=== PATIENT | male | born 1975 | race Caucasian/White ===

== ENCOUNTER 2016-10-27 08:28 | Observation (INO) | payer BC ==
[2016-10-27] MEDS ORDERED: SODIUM CHLORIDE 0.9% 1,000 ML IV STA (08:37)
[2016-10-27] MEDS ORDERED: ACETAMINOPHEN IV (For NPO) 1,000 MG in SALINE 100 100ML.BAG IVPB STA (08:38)
--- NOTE | 2016-10-27 08:40 | ED ---
Abdominal Pain HPI - General Source: patient, RN notes reviewed Mode of arrival: ambulatory Limitations: no limitations <Alejandro Castillo - Last Filed: 10/27/16 11:11> <Rikki Benavides - Last Filed: 10/27/16 11:14> - General Chief Complaint: Abdominal Pain Stated Complaint: ABDOMINAL PAIN Time Seen by Provider: 10/27/16 08:35 - History of Present Illness Initial Comments: Patient is a 40-year-old male who presents emergency room today with a chief complaint of increased right-sided abdominal pain that started approximate 1 AM. Describes it as cramping and sharp at times. Currently rates it a 5/10. Does admit that he had a bout of diarrhea this morning. States try to go to work but pain seemed to be increasing. Patient states never had similar symptoms in the past. Denies any history of any abdominal surgeries. Denies any other past medical history. Patient denies any recent fever, chills, shortness of breath, chest pain, back pain, nausea or vomiting, numbness or tingling, dysuria or hematuria, constipation, headaches or visual changes, or any other complaints. (Alejandro Castillo) - Related Data Allergies Allergy/AdvReac Type Severity Reaction Status Date / Time Penicillins Allergy Unknown Verified 10/27/16 08:32 Childhood Review of Systems ROS Other: All systems not noted in ROS Statement are negative. <Alejandro Castillo - Last Filed: 10/27/16 11:11> ROS Other: All systems not noted in ROS Statement are negative. <Rikki Benavides - Last Filed: 10/27/16 11:14> ROS Statement: Those systems with pertinent positive or pertinent negative responses have been documented in the HPI. Past Medical History Past Medical History: No Reported History History of Any Multi-Drug Resistant Organisms: None Reported Past Surgical History: Ear Surgery, Orthopedic Surgery Additional Past Surgical History / Comment(s): right knee scope Past Psychological History: Anxiety Smoking Status: Never smoker Past Alcohol Use History: Occasional Past Drug Use History: None Reported <Alejandro Castillo - Last Filed: 10/27/16 11:11> General Exam Limitations: no limitations <Alejandro Castillo - Last Filed: 10/27/16 11:11> <Rikki Benavides - Last Filed: 10/27/16 11:14> - General Exam Comments Initial Comments: General: The patient is awake and alert, in no distress, and does not appear acutely ill. Eye: Pupils are equal, round and reactive to light, extra-ocular movements are intact. No nystagmus. There is normal conjunctiva bilaterally. No signs of icterus. Ears, nose, mouth and throat: There are moist mucous membranes and no oral lesions. Neck: The neck is supple, there is no tenderness or JVD. Cardiovascular: There is a regular rate and rhythm. No murmur, rub or gallop is appreciated. Respiratory: Lungs are clear to auscultation, respirations are non-labored, breath sounds are equal. No wheezes, stridor, rales, or rhonchi. Gastrointestinal: Normal appearance abdomen. Normal bowel sounds. Involuntary guarding. Tenderness in right lower quadrant. No rebound tenderness. No CVA tenderness. Musculoskeletal: Normal ROM, no tenderness. Strength 5/5. Sensation intact. Pulses equal bilaterally 2+. Neurological: A&O x 3. CN II-XII intact, There are no obvious motor or sensory deficits. Coordination appears grossly intact. Speech is normal. Skin: Skin is warm and dry and no rashes or lesions are noted. Psychiatric: Cooperative, appropriate mood & affect, normal judgment. (Alejandro Castillo) Course <Alejandro Castillo - Last Filed: 10/27/16 11:11> <Rikki Benavides - Last Filed: 10/27/16 11:14> Vital Signs 10/27/16 10/27/16 10/27/16 08:30 09:32 10:35 Temperature 97.9 F Pulse Rate 76 87 83 Respiratory 16 20 20 Rate Blood Pressure 126/81 137/98 122/89 O2 Sat by Pulse 100 98 97 Oximetry - Reevaluation(s) Reevaluation #1: 10/27/16 11:12 I did personally do a [id number] evaluation the patient and did discuss the findings with the patient and his family members. Patient does demonstrate tenderness over McBurney's point. His CAT scan does show evidence of early appendicitis. Also a trace of pelvic free fluid likely reactive to inflammation I did discuss the case with Dr. Mueller. The patient will be admitted and taken to the operating room for laparoscopic appendectomy/ evaluation patient does have a penicillin ALLERGY and will be started on Levaquin. (Rikki Benavides) Medical Decision Making - Lab Data Result diagrams: 10/27/16 08:46 10/27/16 08:46 <Alejandro Castillo - Last Filed: 10/27/16 11:11> - Lab Data Result diagrams: 10/27/16 08:46 10/27/16 08:46 <Rikki Benavides - Last Filed: 10/27/16 11:14> - Medical Decision Making Patient reexamined at this time shows no signs of distress resting comfortably in the stretcher. Patient still expressing pain right lower quadrant. Does have 15,[address] the abdomen and pelvis revealing evidence for acute appendicitis. Case discussed attending physician Dr. Benavides who did discuss case with surgeon highway commissioner Dr. Mueller who will admit the patient and recommend starting antibiotics of Levaquin due to penicillin ALLERGY. (Alejandro Castillo) - Lab Data Lab Results 10/27/16 10/27/16 10/27/16 Range/Units 08:46 08:46 08:46 WBC 15.6 H (3.8-10.6) k/uL RBC 4.91 (4.30-5.90) m/uL Hgb 16.5 (13.0-17.5) gm/dL Hct 44.6 (39.0-53.0) % MCV 90.9 (80.0-100.0) fL MCH 33.6 (25.0-35.0) pg MCHC 37.0 (31.0-37.0) g/dL RDW 12.5 (11.5-15.5) % Plt Count 306 (150-450) k/uL Neutrophils % 88 % Lymphocytes % 6 % Monocytes % 3 % Eosinophils % 1 % Basophils % 0 % Neutrophils # 13.8 H (1.3-7.7) k/uL Lymphocytes # 1.0 (1.0-4.8) k/uL Monocytes # 0.5 (0-1.0) k/uL Eosinophils # 0.1 (0-0.7) k/uL Basophils # 0.1 (0-0.2) k/uL Sodium 138 (137-145) mmol/L Potassium 4.0 (3.5-5.1) mmol/L Chloride 100 (98-107) mmol/L Carbon Dioxide 26 (22-30) mmol/L Anion Gap 12 mmol/L BUN 15 (9-20) mg/dL Creatinine 0.94 (0.66-1.25) mg/dL Est GFR (MDRD) Af Amer >60 (>60 ml/min/1.73 sqM) Est GFR (MDRD) Non-Af >60 (>60 ml/min/1.73 sqM) Glucose 115 H (74-99) mg/dL Plasma Lactic Acid Colten 0.9 (0.7-2.0) mmol/L Calcium 9.8 (8.4-10.2) mg/dL Total Bilirubin 1.1 (0.2-1.3) mg/dL AST 29 (17-59) U/L ALT 36 (21-72) U/L Alkaline Phosphatase 78 (38-126) U/L Total Protein 8.5 H (6.3-8.2) g/dL Albumin 5.2 H (3.5-5.0) g/dL Amylase 61 (30-110) U/L Lipase 139 (23-300) U/L Urine Color Urine Appearance (Clear) Urine pH (5.0-8.0) Ur Specific [place] (1.001-1.035) Urine Protein (Negative) Urine Glucose (UA) (Negative) Urine Ketones (Negative) Urine Blood (Negative) Urine Nitrite (Negative) Urine Bilirubin (Negative) Urine Urobilinogen (<2.0) mg/dL Ur Leukocyte Esterase (Negative) 10/27/16 Range/Units 08:46 WBC (3.8-10.6) k/uL RBC (4.30-5.90) m/uL Hgb (13.0-17.5) gm/dL Hct (39.0-53.0) % MCV (80.0-100.0) fL MCH (25.0-35.0) pg MCHC (31.0-37.0) g/dL RDW (11.5-15.5) % Plt Count (150-450) k/uL Neutrophils % % Lymphocytes % % Monocytes % % Eosinophils % % Basophils % % Neutrophils # (1.3-7.7) k/uL Lymphocytes # (1.0-4.8) k/uL Monocytes # (0-1.0) k/uL Eosinophils # (0-0.7) k/uL Basophils # (0-0.2) k/uL Sodium (137-145) mmol/L Potassium (3.5-5.1) mmol/L Chloride (98-107) mmol/L Carbon Dioxide (22-30) mmol/L Anion Gap mmol/L BUN (9-20) mg/dL Creatinine (0.66-1.25) mg/dL Est GFR (MDRD) Af Amer (>60 ml/min/1.73 sqM) Est GFR (MDRD) Non-Af (>60 ml/min/1.73 sqM) Glucose (74-99) mg/dL Plasma Lactic Acid [place] (0.7-2.0) mmol/L Calcium (8.4-10.2) mg/dL Total Bilirubin (0.2-1.3) mg/dL AST (17-59) U/L ALT (21-72) U/L Alkaline Phosphatase (38-126) U/L Total Protein (6.3-8.2) g/dL Albumin (3.5-5.0) g/dL Amylase (30-110) U/L Lipase (23-300) U/L Urine Color Yellow Urine Appearance Clear (Clear) Urine pH 5.5 (5.0-8.0) Ur Specific [place] 1.024 (1.001-1.035) Urine Protein Trace H (Negative) Urine Glucose (UA) Negative (Negative) Urine Ketones Negative (Negative) Urine Blood Negative (Negative) Urine Nitrite Negative (Negative) Urine Bilirubin Negative (Negative) Urine Urobilinogen <2.0 (<2.0) mg/dL Ur Leukocyte Esterase Negative (Negative) Disposition Time of Disposition: 11:04 <Alejandro Castillo - Last Filed: 10/27/16 11:11> <Rikki Benavides - Last Filed: 10/27/16 11:14> Clinical Impression: Acute appendicitis, Abdominal pain Disposition: ADMITTED IP TO THIS HOSP Condition: Stable Referrals: Sheryl Oconnell MD [Primary Care Provider] - 1-2 days
[2016-10-27 09:03] LABS: Basophils # (A) 0.1 k/uL (0-0.2); Basophils % (A) 0 %; CH 32.8; CHCM 36.2; Eosinophils # (A) 0.1 k/uL (0-0.7); Eosinophils % (A) 1 %; HCT 44.6 % (39.0-53.0); HDW 2.57; HGB 16.5 gm/dL (13.0-17.5); Luc # (Auto) 0.14; Luc % (Auto) 1; Lymphocytes % (A) 6 %; MCH 33.6 pg (25.0-35.0); MCV 90.9 fL (80.0-100.0); Monocytes # (A) 0.5 k/uL (0-1.0); Monocytes % (A) 3 %; Neutrophils # (A) 13.8 k/uL (1.3-7.7); Neutrophils % (A) 88 %; RBC 4.91 m/uL (4.30-5.90); RDW 12.5 % (11.5-15.5); WBC 15.6 k/uL (3.8-10.6); WBC (Perox) 14.67
[2016-10-27 09:04] LABS: Appearance,Urine Clear (Clear); Bilirubin,Urine Negative (Negative); Glucose,Urine (UA) Negative (Negative); Ketones,Urine Negative (Negative); Leukocyte Esterase,Urine Negative (Negative); Nitrite,Urine Negative (Negative); PH, Urine 5.5 (5.0-8.0); Protein,Urine Trace (Negative); Specific Gravity,Urine 1.024 (1.001-1.035); UA Billing (MACRO vs. MICRO) CHEM; Urobilinogen,Urine <2.0 mg/dL (<2.0)
[2016-10-27 09:14] LABS: ALT 36 U/L (21-72); AST 29 U/L (17-59); Alkaline Phosphatase 78 U/L (38-126); Amylase 61 U/L (30-110); Anion Gap 12 mmol/L; Blood Urea Nitrogen 15 mg/dL (9-20); Calcium 9.8 mg/dL (8.4-10.2); Carbon Dioxide 26 mmol/L (22-30); Chloride 100 mmol/L (98-107); Glucose 115 mg/dL (74-99); Non-African American GFR(MDRD) >60 (>60 ml/min/1.73 sqM); Sodium 138 mmol/L (137-145); Total Bilirubin 1.1 mg/dL (0.2-1.3); Total Protein 8.5 g/dL (6.3-8.2)
[2016-10-27] MEDS ORDERED: RX INFO: IV CONTRAST WAS GIVEN 1 EACH MISC MISCELLANE PRN (09:15)
--- NOTE | 2016-10-27 10:40 | CT ---
EXAMINATION TYPE: CT abdomen pelvis w con DATE OF EXAM: 10/27/2016 COMPARISON: NONE HISTORY: 40-year-old male with abdominal pain, right lower quadrant TECHNIQUE: Contiguous axial scanning of the abdomen and pelvis following administration of 100 ml Omn ipaque 300 IV contrast. Delayed images through the kidneys and coronal/sagittal reconstructions perf ormed. CT DLP: 660.60 mGycm Automated exposure control for dose reduction was used. FINDINGS: The heart is normal size without pericardial effusion. Tiny hiatal hernia. Lung bases clear without p leural effusion. No focal liver lesion or biliary ductal dilatation. Portal venous system is patent. Gallbladder, adrenal glands, kidneys, spleen, and pancreas within normal limits. No dilated small bowel, free fluid, or free air. No significant stool burden or a colonic inflammatory change. The appendix is visualized and is fluid-filled and mildly thickened 9 mm with minimal periappendiceal fat stranding. Mild circumferential bladder wall thickening. There is trace pelvic free fluid noted. No pelvic lymph adenopathy. Bones: Mild degenerative changes of the hips. Degenerative changes lower lumbar spine, suspected part ial interbody ankylosis toward the left at L4-L5 and a secondary mild dextroconvex scoliosis. Grade 1 retrolistheses at L2-L3 and L3-L4. No osseous destructive process. IMPRESSION: 1. FINDINGS ARE SUSPICIOUS FOR MILD ACUTE APPENDICITIS. NO ABSCESS OR FREE AIR. 2. TRACE PELVIC FREE FLUID LIKELY REACTIVE TO THE INFLAMMATION. 3. DEGENERATIVE CHANGES LOWER LUMBAR SPINE ABOVE.
[2016-10-27] MEDS ORDERED: ONDANSETRON 4 MG/2 ML VIAL IVP STA (10:49)
[2016-10-27] MEDS ORDERED: HYDROmorphone 1 MG/ML 1 ML SYRINGE IVP STA (10:49)
[2016-10-27] MEDS ORDERED: NALOXONE 0.4 MG/ML 1 ML VIAL IV PRN (11:06)
[2016-10-27] MEDS ORDERED: ONDANSETRON 4 MG/2 ML VIAL IVP PRN (11:06)
[2016-10-27] MEDS ORDERED: LEVOFLOXACIN 750MG-D5W PMX 750 MG in DEXTROSE/WATER 1 150ML.BAG IVPB STA (11:10)
[2016-10-27] MEDS ORDERED: LORazepam 2 MG/ML SYRINGE IV STA ×2 (11:16→11:17)
[2016-10-27] MEDS ORDERED: HEPARIN SODIUM,PORCINE 5,000 UNIT/ML 1 ML VIAL SQ ONE (12:06)
[2016-10-27] MEDS ORDERED: SUCCINYLCHOLINE CHLORIDE 100 MG/5 ML SYR IV ONE (12:18)
[2016-10-27] MEDS ORDERED: PROPOFOL 10 MG/ML 20 ML VIAL IV ONE (12:18)
[2016-10-27] MEDS ORDERED: GLYCOPYRROLATE 0.2 MG/ML 2 ML VIAL ONE (12:18)
[2016-10-27] MEDS ORDERED: VECURONIUM 10 MG VIAL IV ONE (12:18)
[2016-10-27] MEDS ORDERED: LIDOCAINE 1% INJ 10MG/ML (20 ML MDV) ONE (12:18)
[2016-10-27] MEDS ORDERED: MIDAZOLAM 2 MG/2 ML VIAL ONE (12:18)
[2016-10-27] MEDS ORDERED: fentaNYL (PF) 50 MCG/ML 2 ML AMP ONE (12:18)
[2016-10-27] MEDS ORDERED: NEOSTIGMINE 1 MG/ML 10 ML VIAL ONE (12:18)
--- NOTE | 2016-10-27 12:21 | P.GSHP ---
History of Present Illness H&P Date: 10/27/16 Chief Complaint: Acute appendicitis Patient began having abdominal pain at 5 AM. Pain was initially centralized but became more in the right lower quadrant. It was crampy in nature. He had 1 episode of diarrhea. This was nonbloody. No fevers. No history of similar events in the past. Appetite is diminished. White blood cell count is elevated. CAT scan shows thickening of the appendix and also some thickening of the right colon. Early appendicitis was the presumptive diagnosis by radiology. - Review of Systems Comment: The patient denies any acute changes in vision or hearing, no dysphagia or odynophagia, no chest pain or shortness of breath, no dysuria or hematuria, no headache, no runny nose, no rectal bleeding or melena, no unexplained weight loss Past Medical History Past Medical History: No Reported History History of Any Multi-Drug Resistant Organisms: None Reported Past Surgical History: Ear Surgery, Orthopedic Surgery Additional Past Surgical History / Comment(s): right knee scope Past Psychological History: Anxiety Smoking Status: Never smoker Past Alcohol Use History: Occasional Past Drug Use History: None Reported Medications and Allergies Home Medications Medication Instructions Recorded Confirmed Type ALPRAZolam [Xanax] 0.5 mg PO BID PRN 10/27/16 10/27/16 History Ibuprofen [Motrin] 200 - 400 mg PO Q6HR PRN 10/27/16 10/27/16 History diphenhydrAMINE HCL [Benadryl] 25 mg PO DAILY PRN 10/27/16 10/27/16 History Allergies Allergy/AdvReac Type Severity Reaction Status Date / Time Penicillins Allergy Unknown Verified 10/27/16 11:25 Childhood Surgical - Exam Vital Signs Temp Pulse Resp BP Pulse Ox 97.9 F 76 16 126/81 100 10/27/16 08:30 10/27/16 08:30 10/27/16 08:30 10/27/16 08:30 10/27/16 08:30 Physical exam: General: Well-developed, well-nourished HEENT: Normocephalic, sclerae nonicteric Abdomen: Right lower quadrant tenderness, nondistended Extremities: No edema Neuro: Alert and oriented Results - Labs 10/27/16 08:46 10/27/16 08:46 Abnormal Lab Results - Last 24 Hours (Table) 10/27/16 10/27/1610/27/17 Range/Units 08:46 08:46 08:46 WBC 15.6 H (3.8-10.6) k/uL Neutrophils # 13.8 H (1.3-7.7) k/uL Glucose 115 H (74-99) mg/dL Total Protein 8.5 H (6.3-8.2) g/dL Albumin 5.2 H (3.5-5.0) g/dL Urine Protein Trace H (Negative) Diabetes panel 10/27/16 Range/Units 08:46 Sodium 138 (137-145) mmol/L Potassium 4.0 (3.5-5.1) mmol/L Chloride 100 (98-107) mmol/L Carbon Dioxide 26 (22-30) mmol/L BUN 15 (9-20) mg/dL Creatinine 0.94 (0.66-1.25) mg/dL Glucose 115 H (74-99) mg/dL Calcium 9.8 (8.4-10.2) mg/dL AST 29 (17-59) U/L ALT 36 (21-72) U/L Alkaline Phosphatase 78 (38-126) U/L Total Protein 8.5 H (6.3-8.2) g/dL Albumin 5.2 H (3.5-5.0) g/dL Calcium panel 10/27/16 Range/Units 08:46 Calcium 9.8 (8.4-10.2) mg/dL Albumin 5.2 H (3.5-5.0) g/dL Pituitary panel 10/27/16 Range/Units 08:46 Sodium 138 (137-145) mmol/L Potassium 4.0 (3.5-5.1) mmol/L Chloride 100 (98-107) mmol/L Carbon Dioxide 26 (22-30) mmol/L BUN 15 (9-20) mg/dL Creatinine 0.94 (0.66-1.25) mg/dL Glucose 115 H (74-99) mg/dL Calcium 9.8 (8.4-10.2) mg/dL Adrenal panel 10/27/16 Range/Units 08:46 Sodium 138 (137-145) mmol/L Potassium 4.0 (3.5-5.1) mmol/L Chloride 100 (98-107) mmol/L Carbon Dioxide 26 (22-30) mmol/L BUN 15 (9-20) mg/dL Creatinine 0.94 (0.66-1.25) mg/dL Glucose 115 H (74-99) mg/dL Calcium 9.8 (8.4-10.2) mg/dL Total Bilirubin 1.1 (0.2-1.3) mg/dL AST 29 (17-59) U/L ALT 36 (21-72) U/L Alkaline Phosphatase 78 (38-126) U/L Total Protein 8.5 H (6.3-8.2) g/dL Albumin 5.2 H (3.5-5.0) g/dL Assessment and Plan (1) Acute appendicitis Narrative/Plan: Clinical scenario discussed with the patient and his family. There is the possibility that the right-sided inflammatory changes may be contributing to the patient's symptoms and there may be something more than just appendicitis as the etiology. Plan to proceed with diagnostic laparoscopy and laparoscopic appendectomy if indicated was discussed. The risks of bleeding, infection, abscess, conversion to an open procedure, possible need for bowel resection, persistent postoperative pain were discussed. He understands and wishes to proceed. Status: Acute
[2016-10-27] MEDS ORDERED: BUPIVACAINE (PF) 0.25% 30 ML VIAL SQ ONE ×2 (12:43)
[2016-10-27] MEDS ORDERED: SODIUM CHLORIDE 0.9% 1,000 ML IV ONE (12:44)
--- NOTE | 2016-10-27 13:16 | P.PCN ---
Date of Procedure: 10/27/16 Preoperative Diagnosis: Postoperative Diagnosis: Procedure(s) Performed: PREOPERATIVE DIAGNOSIS: Acute appendicitis POSTOPERATIVE DIAGNOSIS: Same PROCEDURE: Laparoscopic appendectomy SURGEON: Ervin EBL: Total ANESTHESIA: General COMPLICATIONS: None OPERATIVE PROCEDURE: The patient was brought and placed on the operating table in the supine position. The patient was placed under general anesthesia. The abdomen was prepped and draped in the usual sterile fashion. A small vertical infraumbilical incision was made. The fascia was retracted anteriorly with Douglas forceps. The Veress needle was advanced into the perineal cavity. The saline drop test was normal. Insufflation took place to 15 mmHg. A 5 mm trocar was then placed. An additional 5 mm suprapubic trocar was placed under direct visualization as well as a 12 mm left lower quadrant trocar under direct visualization. The appendix was inspected. It was acutely inflamed. The mesoappendix was dissected. The base of the appendix was divided using a linear 45 mm intestinal stapler. The mesentery itself was divided using a fowler load stapler. There was small amount of bleeding along the staple line that was controlled using the 12 mm clipper. The area was then irrigated. No further purulence or bleeding was seen. The appendix was brought out of the peritoneal cavity through the left lower quadrant trocar site within the trocar itself. The fascia at the 12 mm site was closed using a [id number] 0 Vicryl stitch. The skin at all 3 sites was closed using 4-0 Monocryl sutures. Steri-Strips and sterile dressings then applied. DISPOSITION: Stable to recovery room Implants: Indications for Procedure: Operative Findings: Description of Procedure:
[2016-10-27] MEDS ORDERED: KETOROLAC 30 MG/ML 1 ML VIAL IVP ONE (13:24)
[2016-10-27] MEDS: HYDROmorphone 1 MG/ML 1 ML SYRINGE IVP ONE ×2 (13:24→13:30)
[2016-10-27 14:05] VITALS: BMI 28.7
[2016-10-27] MEDS: HYDROmorphone 1 MG/ML 1 ML SYRINGE IV PRN ×3 (14:13→20:50)
[2016-10-27] MEDS: HEPARIN SODIUM,PORCINE 5,000 UNIT/ML 1 ML VIAL SQ SCH ×2 (16:49→22:33)
[2016-10-27] MEDS: HYDROcodone/APAP 5-325MG 1 EACH TAB PO PRN (22:32)
[2016-10-28] MEDS: HYDROmorphone 1 MG/ML 1 ML SYRINGE IV PRN (03:05)
[2016-10-28 03:31] VITALS: RESP 16
[2016-10-28] MEDS: HYDROcodone/APAP 5-325MG 1 EACH TAB PO PRN (07:25)
[2016-10-28 08:40] VITALS: BP 136/83; PULSE 67; TEMP 98.7
[2016-10-28] MEDS: HEPARIN SODIUM,PORCINE 5,000 UNIT/ML 1 ML VIAL SQ SCH (09:30)
--- NOTE | 2016-10-28 11:28 | P.DS ---
Providers Date of admission: 10/27/16 11:14 Expected date of discharge: 10/28/16 Attending physician: Alejandro Mueller Primary care physician: Sheryl Oconnell - Discharge Diagnosis(es) (1) Acute appendicitis Patient underwent laparoscopic appendectomy yesterday morning. Postoperatively the patient had mild discomfort and was kept overnight. Today he is doing quite well. He is ambulating. Pain is well-controlled. He is afebrile. He would like to go home today. Status: Acute Patient Condition at Discharge: Stable Plan - Discharge Summary New Discharge Prescriptions: No Action diphenhydrAMINE HCL [Benadryl] 25 mg PO DAILY PRN PRN Reason: Allergy Symptoms Ibuprofen [Motrin] 200 - 400 mg PO Q6HR PRN PRN Reason: Pain ALPRAZolam [Xanax] 0.5 mg PO BID PRN PRN Reason: Anxiety Discharge Medication List ALPRAZolam [Xanax] 0.5 mg PO BID PRN 10/27/16 [History] Ibuprofen [Motrin] 200 - 400 mg PO Q6HR PRN 10/27/16 [History] diphenhydrAMINE HCL [Benadryl] 25 mg PO DAILY PRN 10/27/16 [History] Follow up Appointment(s)/Referral(s): Alejandro Mueller MD [Medical Doctor] - 1 Week Sheryl Oconnell MD [Primary Care Provider] - 1-2 days Patient Instructions/Handouts: Laparoscopic Appendectomy (DC) Discharge Disposition: HOME SELF-CARE
[2016-10-28] MEDS ORDERED: LEVOFLOXACIN 500MG-D5W PMX 500 MG in DEXTROSE/WATER 1 100ML.BAG IVPB SCH (12:00)
== END 2016-10-28 10:30 | disposition home or self-care (01) ==
LOC: EC 08:28 → 3OBS 11:14
PROVIDERS: ADMIT Surgery; ATTEND Surgery
DX: K35.80 Unspecified acute appendicitis (principal); Z88.0 Allergy status to penicillin; F41.9 Anxiety disorder, unspecified; Z79.899 Other long term (current) drug therapy
CPT/HCPCS: 36415; 74177; 80053; 81003; 82150; 83605; 83690; 85025; 88304; 96361; 96365; 96367; 96375; 99285

== ENCOUNTER → 2022-02-27 | Outpatient (CLI) | payer BC ==
--- NOTE | 2022-02-27 09:12 | US ---
EXAMINATION TYPE: US liver DATE OF EXAM: 02/27/2022 COMPARISON: CT CLINICAL HISTORY: R94.5 ABNORMAL RESULTS OF LIVER FUNCTION STUDIES. Abnormal LFT's TECHNIQUE: Multiple sonographic images of the right upper quadrant are obtained. FINDINGS: EXAM MEASUREMENTS: Liver Length: 16.6 cm Gallbladder Wall: 0.2 cm CBD: 0.4 cm Right Kidney: 10.6 x 4.7 x 5.9 cm FIRE DISPATCHER NOTES: Pancreas: Obscured by bowel gas Liver: Heterogeneous Gallbladder: Slightly contracted, pt states he is NPO Evidence for sonographic Castro's sign: No CBD: wnl Right Kidney: wnl IMPRESSION: Heterogenous appearance to minimally enlarged liver. Correlate for some mild fatty infiltration.
== END | disposition home or self-care (01) ==
LOC: RADUSWWP 06:50
PROVIDERS: ATTEND Family Medicine
DX: R16.0 Hepatomegaly, not elsewhere classified (principal); R94.5 Abnormal results of liver function studies
CPT/HCPCS: 76705

== ENCOUNTER 2022-04-25 10:25 | Day surgery (SDC) | payer BC ==
[~2022-04-25 10:25] MED LIST: LACTATED RINGERS 1,000 ML IV SCH; LIDOCAINE 1% (10MG/ML) FOR IV START INTRADERMA PRN
[2022-04-25 11:08] VITALS: RESP 16; TEMP 97.2
[2022-04-25] MEDS ORDERED: PROPOFOL 10 MG/ML 20 ML VIAL IV ONE (11:46)
[2022-04-25] MEDS ORDERED: LIDOCAINE 2% INJ 20 MG/ML (2 ML VIAL) ONE (11:46)
--- NOTE | 2022-04-25 12:00 | P.PCN ---
Date of Procedure: 04/25/22 Procedure(s) Performed: BRIEF HISTORY: Patient is a 46-year-old pleasant white male scheduled for an elective colonoscopy as a part of screening for colon cancer. PROCEDURE PERFORMED: Colonoscopy. PREOPERATIVE DIAGNOSIS: Screening for colon cancer. IV sedation per Anesthesia. PROCEDURE: After informed consent was obtained, the patient, was brought into the endoscopy unit. IV sedation was administered by Anesthesia under continuous monitoring. Digital rectal examination was normal. Initially the Olympus CF-160 flexible video colonoscope was then inserted in the rectum, gradually advanced into the cecum without any difficulty. Careful examination was performed as the scope was gradually being withdrawn. Ileocecal valve and the appendiceal orifice were visualized and appeared normal. Prep was fair.. Mucosa of the cecum, ascending colon, transverse colon, descending colon, sigmoid colon, and rectum appeared normal. Retroflexion was performed in the rectum and no lesions were seen. The patient tolerated the procedure well. IMPRESSION: Normal-appearing colon from rectum to cecum with no evidence of colorectal neoplasia. RECOMMENDATIONS: Findings of this examination were discussed with the patient as well as his family. He was advised to have a repeat screening colonoscopy in 10 years..
[2022-04-25 12:25] VITALS: BP 128/83; PULSE 78
== END 2022-04-25 12:31 | disposition home or self-care (01) ==
LOC: ORWHC2ENDO 10:25
PROVIDERS: ATTEND Internal Medicine Gastroenterology
DX: Z12.11 Encounter for screening for malignant neoplasm of colon (principal); K21.9 Gastro-esophageal reflux disease without esophagitis; F41.9 Anxiety disorder, unspecified; Z88.0 Allergy status to penicillin; Z91.013 Allergy to seafood; Z79.899 Other long term (current) drug therapy
CPT/HCPCS: 45378; J2704; J2001

== ENCOUNTER → 2022-11-12 | Outpatient (CLI) | payer BC ==
[2022-11-14 13:56] LABS: Alpha 1 Anti-Trypsin 121 mg/dL (90 - 200); Alpha-1-Antitrypsin Phenotype MS
== END | disposition home or self-care (01) ==
LOC: LABWHC1 11:08
PROVIDERS: ATTEND Family Medicine
DX: R78.89 Finding of other specified substances, not normally found in blood (principal)
CPT/HCPCS: 36415; 82103; 82104; 82390; 82525